=== PATIENT | female | born 1965 | race Caucasian/White ===

== ENCOUNTER → 2016-10-08 | Outpatient (CLI) | payer OTHER ==
--- NOTE | ~2016-10-08 | MY11 ---
[facility] A Service [facility] RADIOLOGY TEXT RESULTS PATIENT: EDI HILL LOCATION: [facility] : 65 UNIT #: [id number] AGE: [address]: Wendie Alcaraz MD SEX: F ORDER DR: [id number] [facility]. [place], [place] [address] [id number] O MR#: [id number] Acc #: [id number] NAME: EDI HILL : 1965 SEX: F STUDY DATE/TIME: 10/08/2016 10:55 UNIT: [facility] ROOM: STUDY DESCRIPTION: MY Mammogram Screening Dig Jeff Attending Physician: Wendie Alcaraz M.D. Referring Physician: Wendie Alcaraz M.D. Ordering Physician: Wendie Alcaraz M.D. Primary Care Physician: Susan Dos Santos MEDICAL IMAGING REPORT This report is preliminary unless electronic signature is present EXAM Bilateral digital screening mammogram with CAD. INDICATION Breast cancer screening. 51-year-old asymptomatic female. No personal or family history of breast cancer. COMPARISONS October 07, 2015, October 04, 2014, October 12, 2013, July 25, 2013, August 02, 2012, June 05, 2011, March 14, 2010, April 17, 2009, January 09, 2008, June 06, 2007, May 11, 2007, and September 15, 2005. FINDINGS The breast tissue is heterogeneously dense, which could obscure detection of small masses. No suspicious findings are seen. IMPRESSION No mammographic evidence of malignancy. Annual clinical breast exam is recommended. Given the patient's breast density, she would likely benefit from annual screening breast tomosynthesis given increased sensitivity and diminished false positive rate as compared to conventional digital mammography. Patients over the age of 40 are entered into a reminder system with target due date for the next mammogram. A result letter will be sent to the patient. BIRADS Final Assessment Category 1: NEGATIVE Dictated by... [facility] A Service [facility] RADIOLOGY TEXT RESULTS PATIENT: EDI HILL LOCATION: [facility] : 65 UNIT #: [id number] AGE: [address]: Wendie Alcaraz MD SEX: F ORDER DR: Salvador Gauthier M.D. THIS IS AN ELECTRONICALLY VERIFIED REPORT Salvador Gauthier M.D. at 10/12/2016 5:46 PM MARGARET/andreina TD: 10/08/2016 17:20 JOB #: [id number] MEDICAL IMAGING REPORT Page 1 of 1 COPY
== END | disposition home or self-care (01) ==
LOC: CWCC 10:09
DX: Z12.31 Encounter for screening mammogram for malignant neoplasm of breast (principal)
CPT/HCPCS: G0202